=== PATIENT | male | born 1960 | race Caucasian/White ===

== ENCOUNTER 2016-09-26 10:53 | Inpatient (IN) | payer BC ==
--- NOTE | 2016-09-25 17:19 | GHP ---
[f rep st] PREOP HISTORY AND PHYSICAL DATE OF ADMISSION: 09/26/2016 This patient requests nobody have access to his chart except those permitted or else he will file a HIPAA complaint. CHIEF COMPLAINT: Prostate cancer. HISTORY OF PRESENT ILLNESS: This is a gentleman who had an abnormal prostate exam and a PSA of 1.5. He had a biopsy of the prostate that revealed [place] score 7, a 3 + 4 in 1 core and 3 cores of Gl karin 6. We have reviewed his options. At the present time, he has elected to undergo a robotic as sisted radical prostatectomy, bilateral pelvic lymphadenectomy. He had perineural invasion noted on the Jennifer 7 side, which was at the right apex. His Polaris test has been reviewed and he does [place] ve significant anxiety attack and aware of stressors. He has recently lost a daughter from complica tions associated with an automobile accident and fat emboli related to her orthopedic injuries. PAST SURGICAL HISTORY: A truss with biopsy and vasectomy. MEDICATIONS: None. ALLERGIES: None. FAMILY HISTORY: Positive for prostate cancer. SOCIAL HISTORY: Nonsmoker. Moderate alcohol use. He is . REVIEW OF SYSTEMS: Negative cardiac, respiratory, GI, endocrine. He does have anxiety related to t his topic and with respect to health care. He has no bleeding diathesis. PHYSICAL EXAM: VITAL SIGNS: Stable. CHEST: Clear. HEART: Regular rate and rhythm. ABDOMEN: N ormal. No organomegaly, rebound or guarding. : His original physical exam revealed a nontender prostate which was asymmetric left greater than right. No significant nodules noted. IMAGING: He had a prostate ultrasound that revealed his prostate to be 18.8 g and no intravesical l obe component. At the present time, he has elected to undergo bilateral pelvic lymphadenectomy and robotic assisted radical prostatectomy. Indications, options, complications associated, expectations discussed. He appears to be well informed. His is quite supportive and has helped through this information journey. He is admitted for the above procedure. /[id number]/MODL
[2016-09-26] MEDS ORDERED: LIDOCAINE 1% 5 ML SDV ONE ×2 (11:14→11:29)
[2016-09-26] MEDS ORDERED: SCOPOLAMINE HYDROBROMIDE 1.5 MG PATCH TD ONE ×2 (11:29→11:50)
[2016-09-26] MEDS ORDERED: CEFAZOLIN 2 GM/DEXTROSE/100 ML BAG IV ONE (11:29)
[2016-09-26] MEDS ORDERED: DIAZEPAM 10 MG/2 ML SYR ONE (11:53)
[2016-09-26] MEDS ORDERED: LIDOCAINE 2% 5 ML SDV ONE (12:06)
[2016-09-26] MEDS ORDERED: fentaNYL 100 MCG/2 ML INJ ONE ×2 (12:06→16:00)
[2016-09-26] MEDS ORDERED: DEXAMETHASONE 4 MG/ML VIAL ONE (12:06)
[2016-09-26] MEDS ORDERED: ROCURONIUM 100 MG/10 ML VIAL ONE (12:06)
[2016-09-26] MEDS ORDERED: PROPOFOL 200 MG/20 ML VIAL ONE ×2 (12:06→12:16)
[2016-09-26] MEDS ORDERED: ONDANSETRON 4 MG/2 ML VIAL ONE (12:40)
[2016-09-26] MEDS ORDERED: HYDROmorphONE/DILAUDID 2 MG/ML INJ ONE (12:53)
[2016-09-26] MEDS ORDERED: BUPIVACAINE 0.5% 30 ML SDV ONE (12:58)
[2016-09-26] MEDS ORDERED: ROCURONIUM 50 MG/5 ML VIAL ONE (13:32)
[2016-09-26] MEDS ORDERED: THROMBIN(HUM PLAS)/FIBRINOG/CA 5 ML VIAL TP ONE (14:03)
[2016-09-26] MEDS ORDERED: KETOROLAC 30 MG/1 ML SDV ONE (14:54)
[2016-09-26] MEDS ORDERED: SUGAMMADEX SODIUM 200 MG/2 ML VIAL IVP ONE (14:55)
[2016-09-26] MEDS ORDERED: LORazepam 2 MG/ML INJ IVP PRN (15:25)
[2016-09-26] MEDS ORDERED: HYDROmorphONE/DILAUDID 1 MG/ML SYR IVP PRN (15:25)
[2016-09-26] MEDS ORDERED: diphenhydrAMINE 25 MG CAP PO PRN (15:26)
--- NOTE | 2016-09-26 15:28 | POSTOPPROG ---
Post Op Note Date of Operation: 09/26/16 Surgeon: Kailash Lemon Buffing Turner And Counter: Sheryl Anesthesiologist: Mohan Anesthesia: GET(General Endotracheal) Pre-op Diagnosis: 185 Post-op Diagnosis: 185 Indication: 185 Procedure: RA-RRP and PLND Inf/Abcess present in the surg proc area at time of surgery?: No EBL: Minimal Complications: none Drains: Olaf Huynh (and simons) Specimen(s): prostate and nodes -- dictated
--- NOTE | 2016-09-26 19:13 | GOP ---
[f rep st] OPERATIVE REPORT DATE OF OPERATION: 09/26/2016 SURGEON: Kailash Lemon MD FIELD AIDE: Ahsly Saucedo CFA. ANESTHESIOLOGIST: Biju Preston MD PREOPERATIVE DIAGNOSIS: prostate cancer POSTOPERATIVE DIAGNOSIS: same PROCEDURE PERFORMED: Robotic-assisted radical retropubic prostatectomy and bilateral pelvic lymphadenectomy. FINDINGS: ESTIMATED BLOOD LOSS: Less than 30 mL. DESCRIPTION OF PROCEDURE: After undergoing general anesthesia and being positioned on the table with appropriate prep and drape, Ioban placed over the abdominal wall. Then a thorough time-out was performed. Veress needle was placed in the supraumbilical site and intraabdominal insufflation to 15 mmHg pressure. Then I placed a camera port at that site, a 12 mm under direct vision. Then I was able to pass the 3 robot 8 mm ports and the 12 mm clinical nursing assistant port in the appropriate places under vision. Then docked the robot. I started with the posterior approach where I identified the vas deferens lateral on both the right and left sides. Carried that down after incising the peritoneum over that site. Then the lateral pedicles of the seminal vesicles, and the vas deferens were hemolocked for hemostasis. Then I dissected between the bladder, prostate and the rectum. At that point, dropped the bladder down in the normal fashion. Identified the endopelvic fascia on both the right and left sides. Incised the puboprostatic and incised the endopelvic fascia. Deep dorsal vein was ligated with two #0 Vicryl sutures using an M stitch technique. I then focused attention to the bladder neck, and meticulous care to preserve the circular fibers of the bladder neck was made and not to buttonhole the bladder laterally. I swept the bladder off the base of the prostate. Identified the seminal vesicles and ampulla, which were brought anterior to the bladder neck. The right lateral pedicle was handled with Hem-o-loks as was the left. Hemostasis noted and then transected the apex of the prostate and used a Dustin stitch to approximate the posterior bladder to the rectal urethralis muscle. Then, a 4-0 Monocryl was used to produce a watertight anastomosis, and it was bridged with the Patrick, tested and noted to be watertight. Evicel was placed across the anastomosis for support. Bilateral pelvic lymphadenectomy was performed using a dissection margin in the mid aspect of the external iliac vein , up to its bifurcation. The obturator nerve was at the depth of incision and Hem-o-elaine was used to provide hemostasis. No trauma to the nerve was identified. The specimen was sent separately from the prostate, and then I placed a #10 Olaf-Huynh drain in the space of Retzius. I did lower the intraabdominal pressure to 5 mmHg, and there was no welling or bleeding identified. Catheter irrigated well. The drain was sewn in place with 3-0 silk and I closed the clinical nursing assistant port with a 0 Vicryl fascial suture closure device under direct vision. Then the specimen brought out through the extension of the incision horizontally at the supraumbilical port, and then that was closed with a running 0 Vicryl. It was hemostatic. Subcutaneous tissue approximated with the closure of the intradermal stitch. Marcaine was used to inject all the op sites. He tolerated the procedure well and will be admitted for postop care. Discussed the findings with his . No frozen sections were obtained. There was no gross lymphadenopathy on the node dissection, and the margins appeared grossly intact, and I tried to preserve the neurovascular bundles without leaving any prostate tissue behind using the Hem-o-loks. DRAINS: WEI drain flat #10, and a Patrick catheter. /[id number]/MODL MTDD
[2016-09-26] MEDS: CHOLECALCIFEROL VIT D3 2,000 UNITS TAB/CAP PO SCH (19:45)
[2016-09-26] MEDS: KETOROLAC 15 MG/1 ML SDV IVP SCH ×2 (19:50→22:55)
[2016-09-26] MEDS ORDERED: NS 1,000 ML IV SCH (23:00)
[2016-09-27] MEDS: KETOROLAC 15 MG/1 ML SDV IVP SCH ×3 (05:02→18:21)
[2016-09-27 05:20] LABS: % IMMATURE GRANULYOCYTES 0.3 % (0.0-1.1); ABSOLUTE IMMATURE GRANULOCYTES 0.03 10^3/uL (0.00-0.10); ADD DIFF? NO; ADD MORPH? NO; ADD SCAN? NO; ATYPICAL LYMPHOCYTE FLAG 0 (0-99); FRAGMENT RBC FLAG 0 (0-99); HEMATOCRIT 37.3 % (40.0-51.0); HEMOGLOBIN 12.9 g/dL (13.7-17.5); LEFT SHIFT FLG 0 (0-99); LIPEMIA HEMOLYSIS FLAG 90 (0-99); MEAN CELL HEMOGLOBIN 32.4 pg (27.9-34.1); MEAN CELL HEMOGLOBIN CONCENTR. 34.6 g/dL (32.4-36.7); MEAN CELL VOLUME 93.7 fL (81.5-99.8); MEAN PLATELET VOLUME 10.4 fL (8.7-11.7); PLATELET CLUMPS FLAG 0 (0-99); PLATELET COUNT 158 10^3/uL (150-400); RED BLOOD CELL COUNT 3.98 10^6/uL (4.40-6.38); RED CELL DISTRIBUTION WIDTH 11.9 % (11.5-15.2)
[2016-09-27 05:33] LABS: ANION GAP 7 mEq/L (8-16); CALCIUM 8.6 mg/dL (8.5-10.4); CARBON DIOXIDE 24 mEq/l (22-31); CHLORIDE 105 mEq/L (97-110); GLOMERULAR FILTRATION RATE > 60; GLUCOSE 109 mg/dL (70-100); POTASSIUM 4.9 mEq/L (3.5-5.2); SODIUM 136 mEq/L (134-144)
[2016-09-27] MEDS: GLUCOSAMINE SULF 500 MG CAP PO SCH (11:36)
[2016-09-27] MEDS: OMEGA-3 FATTY ACIDS 1,000 MG CAP PO SCH (11:36)
--- NOTE | 2016-09-27 13:48 | SOAPPROG ---
SOAP Progress Note Assessment/Plan: Assessment: prostatectomy post op day 1 Plan: Patient does not feel ready for discharge. Will remove JOLYNN drain. Consider d/c tomorrow. 09/27/16 13:47 Subjective: Somewhat tearful during exam. expresses anxiety about wound/catheter care. But no acute pain. Objective: Vital Signs Temp Pulse Resp BP Pulse Ox 36.8 C 65 16 95/63 L 96 09/27/16 12:00 09/27/16 12:00 09/27/16 12:00 09/27/16 12:00 09/27/16 12:00 Laboratory Results 09/27/16 05:09 09/27/16 05:09 09/26/16 09/27/16 09/28/16 05:59 05:59 05:59 Intake Total 1876 Output Total 965 385 Balance 911 -385 Physical Exam - Physical Exam General Appearance: alert Respiratory: normal breath sounds Abdomen: distended (distended but not rigid. jolynn draining small amount of bloody fluid) Male Genitalia: other (catheter draining light red urine) ICD10 Worksheet Patient Problems: Problems Problem Status Onset Anxiety attack Acute Prostate cancer Acute
[2016-09-27] MEDS: CHOLECALCIFEROL VIT D3 2,000 UNITS TAB/CAP PO SCH (20:27)
[2016-09-28] MEDS: KETOROLAC 15 MG/1 ML SDV IVP SCH ×3 (03:36→14:49)
[2016-09-28 05:37] LABS: % IMMATURE GRANULYOCYTES 0.3 % (0.0-1.1); ABSOLUTE IMMATURE GRANULOCYTES 0.02 10^3/uL (0.00-0.10); ADD DIFF? NO; ADD MORPH? NO; ADD SCAN? NO; ATYPICAL LYMPHOCYTE FLAG 0 (0-99); FRAGMENT RBC FLAG 0 (0-99); HEMATOCRIT 36.6 % (40.0-51.0); HEMOGLOBIN 12.4 g/dL (13.7-17.5); LEFT SHIFT FLG 0 (0-99); LIPEMIA HEMOLYSIS FLAG 90 (0-99); MEAN CELL HEMOGLOBIN 32.1 pg (27.9-34.1); MEAN CELL HEMOGLOBIN CONCENTR. 33.9 g/dL (32.4-36.7); MEAN CELL VOLUME 94.8 fL (81.5-99.8); MEAN PLATELET VOLUME 10.7 fL (8.7-11.7); PLATELET CLUMPS FLAG 0 (0-99); PLATELET COUNT 132 10^3/uL (150-400); RED BLOOD CELL COUNT 3.86 10^6/uL (4.40-6.38); RED CELL DISTRIBUTION WIDTH 11.9 % (11.5-15.2)
[2016-09-28 06:00] LABS: ANION GAP 7 mEq/L (8-16); CALCIUM 8.6 mg/dL (8.5-10.4); CARBON DIOXIDE 26 mEq/l (22-31); CHLORIDE 103 mEq/L (97-110); GLOMERULAR FILTRATION RATE > 60; GLUCOSE 81 mg/dL (70-100); POTASSIUM 4.1 mEq/L (3.5-5.2); SODIUM 136 mEq/L (134-144)
[2016-09-28 06:24] VITALS: O2SAT 95
[2016-09-28 08:54] VITALS: BP 100/67; PULSE 52; RESP 16; TEMP 98
[2016-09-28] MEDS: OMEGA-3 FATTY ACIDS 1,000 MG CAP PO SCH (09:13)
[2016-09-28] MEDS: GLUCOSAMINE SULF 500 MG CAP PO SCH (09:13)
[2016-09-28] MEDS ORDERED: KETOROLAC 15 MG/1 ML SDV IM PRN (12:08)
--- NOTE | 2016-09-28 12:20 | SOAPPROG ---
SOAP Progress Note Assessment/Plan: Assessment: Anxiety attack Acute Valium prescribed for cath pull in 10 days Prostate cancer Acute DC and path pending, planned follow up discussed. Plan: as ordered 09/28/16 12:18 Subjective: doing well and home is planned Objective: Vital Signs Temp Pulse Resp BP Pulse Ox 36.6 C 52 L 16 100/67 95 09/28/16 08:50 09/28/16 08:50 09/28/16 08:50 09/28/16 08:50 09/28/16 08:50 Laboratory Results 09/28/16 05:02 09/28/16 05:02 09/27/16 09/28/16 09/29/16 05:59 05:59 05:59 Intake Total 1876 1650 Output Total 965 2165 Balance 911 -515 Physical Exam - Physical Exam General Appearance: alert Neck: full range of motion Respiratory: No respiratory distress Cardiac/Chest: regular rate, rhythm Abdomen: soft (port sites ok) Male Genitalia: normal genitalia (cath normal) Back: No CVA tenderness Skin: warm/dry Extremities: No calf tenderness, No Nani's sign Neuro/Psych: alert, oriented x 3 ICD10 Worksheet Patient Problems: Problems Problem Status Onset Anxiety attack Acute Prostate cancer Acute
== END 2016-09-28 15:22 | disposition home or self-care (01) | DRG 708 ==
LOC: F3E 10:53 → EEVIPCON 11:00 → F1N 13:40
PROVIDERS: ADMIT Specialist; ATTEND Specialist
DX: C61 Malignant neoplasm of prostate (principal)
CPT/HCPCS: J0690; J1100; J1170; J1885; J2405; J2704; J3010

== ENCOUNTER 2017-10-01 08:21 | Day surgery (SDC) | payer BC ==
[2017-10-01] MEDS ORDERED: LR 1,000 ML IV ONE (08:46)
[2017-10-01] MEDS ORDERED: LIDOCAINE 1% 2 ML INJ ID PRN (08:46)
--- NOTE | 2017-10-01 09:33 | PDGENHP ---
History & Physical Chief Complaint: Hematochezia History of Present Illness: 57 yo male with FH of colon cancer in grandfather, personal history of colon polyps and recent hematochezia. No abdominal or rectal pain. Pertinent Past, Social, Family History: No Tobacco or ETOH. FH: colon cancer 2nd degree relative. Relevant Physical Exam: NAD. Anxious. NC/AT. OP clear No LAD. CTA B/L. RRR without m/r/g. ABD soft. NABS. Scaphoid. No HSM. Cardiorespiratory Assessment: ASA II. Colonoscopy with MAC as intolerant to versed/fentanyl (unable to adequately sedate).
[2017-10-01] MEDS ORDERED: fentaNYL 100 MCG/2 ML INJ IVP PRN (09:49)
[2017-10-01] MEDS ORDERED: NS 500 ML IV PRN (09:49)
[2017-10-01] MEDS ORDERED: ALBUTEROL 3 ML DEYVIAL IH PRN (09:49)
[2017-10-01] MEDS ORDERED: ONDANSETRON 4 MG/2 ML VIAL IVP PRN (09:49)
[2017-10-01] MEDS ORDERED: NALOXONE HCL 0.4 MG/ML INJ IVP PRN (09:49)
--- NOTE | 2017-10-01 09:49 | PDANEPAE ---
ANE History of Present Illness Colonoscopy ANE Past Medical History - Cardiovascular History Hx Hypertension: No Hx Arrhythmias: No Hx Chest Pain: No Hx Coronary Artery / Peripheral Vascular Disease: No Hx CHF / Valvular Disease: No Hx Palpitations: No - Pulmonary History Hx COPD: No Hx Asthma/Reactive Airway Disease: No Hx Recent Upper Respiratory Infection: No Hx Oxygen in Use at Home: No Hx Sleep Apnea: No Sleep Apnea Screening Result - Last Documented: Negative Pulmonary History Comment: ALLERGIES - SINUSES - Neurologic History Hx Cerebrovascular Accident: No Hx Seizures: No Hx Dementia: No Neurologic History Comment: ESSENTIAL TREMORS - Endocrine History Hx Diabetes: No - Renal History Hx Renal Disorders: No - Liver History Hx Hepatic Disorders: No - Neurological & Psychiatric Hx Hx Neurological and Psychiatric Disorders: Yes Neurological / Psychiatric History Comment: ANXIETY - Cancer History Hx Cancer: Yes Cancer History Comment: PROSTATE - Congenital Disorder History Hx Congenital Disorders: No - GI History Hx Gastrointestinal Disorders: No - Other Health History Other Health History: VESICULITIS. TINNITUS. FLOATERS - Chronic Pain History Chronic Pain: No - Surgical History Prior Surgeries: VASECTOMY. COLONOSCOPY X2. CATARACT. PROSTATE BX X2 ANE Review of Systems Review of systems is: negative Review of Systems: - Exercise capacity METS (RN): 6 METS ANE Patient History - Allergies Allergies/Adverse Reactions: No Known Allergies Allergy (Verified 10/01/17 09:36) - Home Medications Home Medications: Cholecalciferol Vit D3 [Vitamin D3 2000 units tab (OTC)] 08/29/16 [Last Taken 09/24/17] - NPO status NPO Since - Liquids (Date): 09/30/17 NPO Since - Liquids (Time): 21:00 NPO Since - Solids (Date): 09/30/17 NPO Since - Solids (Time): 09:00 - Smoking Hx Smoking Status: Never smoked - Family Anes Hx Family Hx Anesthesia Complications: NEG ANE Labs/Vital Signs - Vital Signs Blood Pressure: 124/88 Heart Rate: 67 Respiratory Rate: 16 O2 Sat (%): 96 Height: 177.8 cm Weight: 68.039 kg ANE Physical Exam - Airway Neck exam: FROM Mallampati Score: Class 2 Mouth exam: normal dental/mouth exam - Pulmonary Pulmonary: clear to auscultation - Cardiovascular Cardiovascular: regular rate and rhythym - ASA Status ASA Status: I ANE Anesthesia Plan Anesthesia Plan: GA with mask
[2017-10-01] MEDS ORDERED: PROPOFOL/EMULSION 500 MG/50 ML BOTTLE IV ONE (09:53)
[2017-10-01] MEDS ORDERED: PROPOFOL 200 MG/20 ML VIAL ONE (09:54)
[2017-10-01] MEDS ORDERED: LIDOCAINE 2% 5 ML SDV ONE ×2 (10:10)
--- NOTE | 2017-10-01 10:19 | GIREPORT ---
[facility] Surgical Services - Endoscopy Department Patient Name: Rodney Land Procedure Date: 10/01/2017 9:37 AM Patient Type: Outpatient Attending / ER Physician: Brain Hall MD Procedure: Colonoscopy Indications: Hematochezia Providers: Brain Hall MD Medicines: Propofol per Anesthesia Complications: No immediate complications. Description of Procedure: After obtaining informed consent, the scope was passed under direct vis ion. Throughout the procedure, the patient's blood pressure, pulse, and oxyg en saturations were monitored continuously. The Colonoscope was introduced through the anus and advanced to the cecum, identified by appendiceal orifice and ileocecal valve. The colonoscopy was performed without difficulty. The patient tolerated the procedure well. The quality of th e bowel preparation was good. The ileocecal valve, appendiceal orifice, a nd rectum were photographed. Findings: The digital rectal exam findings include non-thrombosed external hemorrhoids. Pertinent negatives include no palpable rectal lesions and normal prostate (size, shape, and consistency). The entire examined colon appeared normal. Estimated Blood Loss: Estimated blood loss: none. Post Op Diagnosis: - Non-thrombosed external hemorrhoids found on digital rectal exam. - The entire examined colon is normal. - No specimens collected. Recommendation: - Repeat colonoscopy in 5 years for surveillance (personal history of c olon adenoma and FH of colon cancer in a 2nd degree relative). - Resume previous diet. - Continue present medications. - Patient has a contact number available for emergencies. The signs and symptoms of potential delayed complications were discussed with the pat ient. Return to normal activities tomorrow. Written discharge instructions we re provided to the patient. - Thank you for allowing me to be involved in the care of your patient. Attending Participation: I personally performed the entire procedure without the assistance of a fellow, resident or surg ical housekeeper/laundry assistant. Brain Hall MD Brain Hall MD 10/01/2017 10:18:49 AM This report has been signed electronicallyDavid MD Isabel Number of Addenda: 0 Note Initiated On: 10/01/2017 9:37 AM [email or web address]
--- NOTE | 2017-10-01 10:27 | POSTANESTH ---
Post Anesthetic Evaluation Cardiovascular Status: Normal, Stable Respiratory Status: Normal, Stable Level of Consciousness/Mental Status: Mildly Sleepy, Arousable Pain Control: Adequate, Prn Tx Ordered Nausea/Vomiting Control: Adequate, Prn Tx Ordered Complications Possibly Related to Anesthesia: None Noted
[2017-10-01 11:18] VITALS: BP 130/93
== END 2017-10-01 11:55 | disposition home or self-care (01) ==
LOC: FSGY 08:21
PROVIDERS: ATTEND Internal Medicine Gastroenterology
PROC: 0DJD8ZZ Inspection of Lower Intestinal Tract, Via Natural or Artificial Opening Endoscopic (ICD-10-PCS; principal; 2017-10-01 09:45)
DX: K92.1 Melena (principal); K64.4 Residual hemorrhoidal skin tags; Z86.010 Personal history of colon polyps; Z80.0 Family history of malignant neoplasm of digestive organs
CPT/HCPCS: J2704